=== PATIENT | female | born 1975 | race Caucasian/White ===

== ENCOUNTER 2018-06-15 20:16 | Observation (INO) ==
[2018-06-16] MEDS ORDERED: Naloxone 0.4 MG/ML INJ IVP PRN ×2 (01:22→07:14)
--- NOTE | 2018-06-16 02:19 | Internal Med History&Physical ---
<Chance Meza - Last Filed: 06/16/18 02:56> Date of Encounter: 06/16/18 Time of Encounter: 02:56 Internal Medicine - H&P: HPI Chief complaint: Right hand pain Admitted From: Home Plans for Post Hospital Care: Home History of present illness: Ms. Mccollum is a 42 year old female resented with chief complaint of right hand pain. Patient was transferred from [place]. Patient reports 2 weeks ago she was mowing her lawn when she felt acute onset of pain in her right hand on the dorsal aspect. She has a history of carrying her tendons of the right hand in 2007 with a fishing knife and reports this pain felt like her tendons were injured. 6 days ago she started having pain and swelling in her right dorsum aspect of the right hand that extended down to her elbow. Pain was described as sharp, stinging, intermittent with radiation to the right shoulder. Patient reported the pain was so bad she drank "an 18 case" beer and 2 days. She went to [facility] and states she was treated for tendinitis of the right hand and given Toradol. However she started developing redness and worsening swelling as well as worsening pain. Patient denied fevers, chills, shortness of breath, chest pain, rash. She does report 12 once 0.5 cm erythematous nodules on her bilateral upper and bilateral lower extremity that have been there since this past week. She has a history of IV drug use including heroin but reports she quit many years ago. She also reports a history of hepatitis C but denies HIV. Her hepatitis C was treated in 2013 with Arturo and she reports she was cured. At [place] patient was seen to have an abscess of her dorsal aspect of the right hand. She underwent incision and drainage and started on IV antibiotics. Dr. Matthews was consulted and patient was transferred to [facility] for further care. Past Med Surg Social Fam HX - Past Medical History Medical history: other Additional medical history: HEP C Psychiatric history: anxiety, bipolar, PTSD, schizophrenia, previous psychiatric hospitalization - Past Surgical History Additional surgical history: RIGHT HAND SX - Social History Smoking Status: Current every day smoker Smokeless Tobacco Status: No Alcohol use: heavy Drug use: marijuana, IV Drug Use - Family History Mother Hx Family Cardiac Disorders: Yes Internal Medicine - H&P: Meds No Known Home Drugs 06/15/18 [History] 3 Allergy/AdvReac Type Severity Reaction Status Date / Time acetaminophen [From Tylenol] Allergy See Verified 06/16/18 07:25 Comments NSAIDS (Non-Steroidal Allergy See Verified 06/16/18 07:25 Anti-Inflamma Comments All Systems PM: A 10-system review of systems was performed and is negative for pertinent findings except as documented above in the HPI. Review of systems: Constitutional: Denies fever, chills HEENT: Denies headache, vision changes, neck pain, sore throat, rhinorrhea Heart: Denies chest pain palpitations Lungs: Denies shortness of breath cough Abdomen: Denies abdominal pain nausea vomiting diarrhea Back: Denies back pain Kidney: Denies dysuria, hematuria Skin: redness and swelling right hand Extremities: reports welling and pain Neuro: Denies numbness and tingling - Constitutional Vitals: Temp Pulse Resp BP Pulse Ox 97.9 F 66 16 109/71 100 06/16/18 01:01 06/16/18 01:01 06/16/18 01:01 06/16/18 01:01 06/16/18 01:01 Exam: General: Pleasant without distress HEENT: Head atraumatic, normocephalic, EOMI, PERRL, neck nontender to palpation , absent lymphadenopathy, Moist Mucous Membranes, Heart: Regular rate and rhythm with no murmur Lungs: Clear to auscultation bilaterally Abdomen: Soft nontender, nondistended positive bowel sounds Skin: Right hand dorsum aspect has a 1 cm incision open packed, erythematous, swollen Extremities: Absent pedal edema, Neuro: Cranial nerves II through XII intact, UE and LE sensation equal bilaterally, UE and LEstrength 5/5, alert oriented 3, Vascular: Pedal and radial pulses 2 out of 4 - Assessment and plan (1) Hand abscess Current Visit: Yes Status: Acute Assessment and plan: 42 y/o female presents with cc of right hand pain patient has significant erythema, swelling of the dorsum of right hand At [place] emergency department patient underwent I&D Cultures have been drawn Patient was started on vancomycin and Unasyn Orthopedic surgery consultation Hand and wrist x-ray showed soft tissue swelling Patient had a mild elevated white count. Normal lactic acid. Does not meet sepsis criteria recieved tetanus vaccine Plan: Continue above antibiotics, ESR, CRP. If ESR CRP elevated and needs to do CT of the right upper extremity. (2) Cellulitis Current Visit: Yes Status: Acute Assessment and plan: as stated above. Qualifiers: Site of cellulitis: extremity Site of cellulitis of extremity: upper extremity Laterality: right Qualified Code(s): L03.113 - Cellulitis of right upper limb (3) History of intravenous drug abuse Current Visit: Yes Status: Acute Assessment and plan: Patient has a history of IV drug abuse: Heroin and also narcotic prescription medication abuse She reports she has been drug free for a few years now no evidence of splinter hemorrages, janeway lesions, conjunctival hemorrhages, osler's nodes We will obtain urine tox. (4) History of hepatitis C Current Visit: Yes Status: Acute Assessment and plan: patient reports history of hepatitis c s/p harvoni treatment in 2013 will obtain viral hep panel (5) Tobacco abuse Current Visit: Yes Status: Acute Assessment and plan: current smoker 30 pack year history patient educated on smoking cessation (6) Alcohol abuse Current Visit: Yes Status: Acute Assessment and plan: reports drinking 18 pack beer one week ago will check ethanol level patient does not show any signs of alcohol withdrawal: normotensive, HR <100, absent palmar erythema, absent tremor - Time Spent With Patient Total time spent is greater than 50% in coordination of care (as documented) at patient's floor/unit and/or counseling patient: <Brianna Meek A - Last Filed: 06/16/18 08:15> Date of Encounter: 06/16/18 Internal Medicine - H&P: HPI History of present illness: Ms. Mccollum is a 42 year old female All Systems PM: A 10-system review of systems was performed and is negative for pertinent findings except as documented above in the HPI. - Constitutional Vitals: Temp Pulse Resp BP Pulse Ox 97.7 F 66 17 135/87 97 06/16/18 05:13 06/16/18 05:13 06/16/18 05:13 06/16/18 05:13 06/16/18 05:13 Internal Med - H&P Results - Labs CBC & Chem 7: 06/16/18 04:00 06/16/18 04:00 Labs: Short CBC 06/16/18 Range/Units 04:00 WBC 8.5 (4.3-11.1) K/mcL Hgb 10.6 L (11.5-15.4) g/dL Hct 32.1 L (35.3-44.9) % Plt Count 290 (140-400) K/mcL Neutrophils # 6.1 (1.6-8.9) K/mcL BMP 06/16/18 04:00 Sodium 139 Potassium 3.6 Chloride 110 H Carbon Dioxide 23 BUN 14 Creatinine 0.75 Glucose 98 Calcium 8.7 - Assessment and plan (1) Hand abscess Current Visit: Yes Status: Acute (2) Cellulitis Current Visit: Yes Status: Acute Qualifiers: Site of cellulitis: extremity Site of cellulitis of extremity: upper extremity Laterality: right Qualified Code(s): L03.113 - Cellulitis of right upper limb (3) History of intravenous drug abuse Current Visit: Yes Status: Acute (4) History of hepatitis C Current Visit: Yes Status: Acute (5) Tobacco abuse Current Visit: Yes Status: Acute (6) Alcohol abuse Current Visit: Yes Status: Acute - Time Spent With Patient Total time spent is greater than 50% in coordination of care (as documented) at patient's floor/unit and/or counseling patient: - Attending Attestation Patient seen and examined. This discussed with the resident. Agree with assessment and plan. We will admit and treat for abscess. Continue with antibiotics. Orthopedics to see patient in the morning.
[2018-06-16] MEDS: *HR* Heparin 5,000 UNIT/ML VIAL SQ SCH ×3 (02:59→22:51)
[2018-06-16] MEDS: Ketorolac 30 MG/ML VIAL IVP PRN ×3 (06:13→18:06)
[2018-06-16] MEDS: Ampicillin/Sulbactam 3,000 MG in 0.9 % Sodium Chloride Mini Bag 100 ML IVPB SCH ×3 (06:13→18:04)
[2018-06-16 06:27] LABS: Basophils % 0.4 %; Eosinophils # 0.1 K/mcL (0.0-0.6); Eosinophils % 1.5 %; Hematocrit 32.1 % (35.3-44.9); Hemoglobin 10.6 g/dL (11.5-15.4); Immature Granulocytes % 0.2 % (0-4); Lymphocytes # 1.6 K/mcL (0.6-4.6); Lymphocytes % 18.3 %; Mean Corpuscular Hemoglobin 29.8 pg (28.0-33.3); Mean Corpuscular Volume 90.2 fL (83.0-100.0); Mean Platelet Volume 9.9 fL (9.4-12.4); Monocytes # 0.6 K/mcL (0.0-1.3); Neutrophils # 6.1 K/mcL (1.6-8.9); Platelet Count 290 K/mcL (140-400); Red Blood Count 3.56 M/mcL (3.82-4.97); Red Cell Distribution Width 12.4 % (11.5-14.5); Segmented Neutrophils % 72.6 %
--- NOTE | 2018-06-16 07:37 | Event Note ---
Date of Encounter: 06/16/18 Subjective: Ms. Mccollum is a 42 y/o female with a pmh of former IVDU and Hep C treated who presented to the ED at [facility] for right hand pain. At [facility] I&D was performed and Ortho consulted. Today, Objective:
--- NOTE | 2018-06-16 07:41 | Internal Med Progress Note ---
<Cyndi Curran - Last Filed: 06/16/18 13:31> Hospitalist Progress Note - Encounter Date of Encounter: 06/16/18 Time of Encounter: 08:45 - Subjective Interval History: Mrs. Mccollum is a 42 yo F that was admitted last night for cellulitis of the right hand~s/p I&D at [place]. The pt states that her sx began 2 weeks ago when she struck her hand against a metal flower petal on an old iron chair. She says that since then there has been increased swelling and erythema to the dorsum of her hand and she has progressively had decreased ROM as well. ~ Today the pt says that he pain has improved from yesterday after the I&D. Pt notes that she is unable to actively extend the fingers of her~right hand and has increased pain with flexion.~~She denies any fever, chills, SOB, nausea or any other sx at this time. - Exam Vitals: Temp Pulse Resp BP Pulse Ox 97.7 F 66 17 135/87 97 06/16/18 05:13 06/16/18 05:13 06/16/18 05:13 06/16/18 05:13 06/16/18 05:13 Exam: General: WD/WN, NAD, A&x3 HEENT:~No LAD, Moist Mucous Membranes, Heart: Regular rate and rhythm with no murmur Lungs: Clear to auscultation bilaterally, no wheezes, rales or rhonchi Abdomen: Soft nontender, nondistended Skin: 1.5 cm incision to the dorsum of the right hand with surrounding erythema extending to the MCPs of the 3rd-5th digits and erythema extending 7 cm proximally from the incision, there is surrounding edema on the dorsum of the right hand without fluctuance. 1+ pitting edema to the right forearm. no streaking or signs of lymphangitis. Extremities: No axillary LAD, Decreased extension of the right wrist and fingers , but the pt is able to actively flex the fingers of her right hand. Neuro: Sensation is grossly intact in the right hand and arm compared to the left. - Assessment and Plan (1) Hand abscess Current Visit: Yes Status: Acute Assessment and Plan: A t [place], Hand and wrist x-ray showed soft tissue swelling. patient underwent I&D Plan: - BC drawn at [place] (06/15/18) pending - wound cultures at [place] (06/15/18) pending - Antibiotics: vancomycin and Unasyn (day 2) - Orthopedic surgery consultation, recommend continuing antibiotics, recheck tomorrow and consider surgery - received tetanus vaccine - hand CT scan pending results. 0 (2) History of hepatitis C Current Visit: Yes Status: Acute Assessment and Plan: History of Hep C treatment. Hepatic panel pending. (3) History of intravenous drug abuse Current Visit: Yes Status: Acute Assessment and Plan: Urine drug screen pending. DVT Prophylaxis: SQ Heparin - Time Spent with Patient Total time spent is greater than 50% in coordination of care (as documented) at patient's floor/unit and/or counseling patient: Internal Medicine: Result - Labs CBC & Chem 7: 06/16/18 04:00 06/16/18 04:00 Labs: Short CBC 06/16/18 Range/Units 04:00 WBC 8.5 (4.3-11.1) K/mcL Hgb 10.6 L (11.5-15.4) g/dL Hct 32.1 L (35.3-44.9) % Plt Count 290 (140-400) K/mcL Neutrophils # 6.1 (1.6-8.9) K/mcL Consult Discharge Plan - Plan Referrals: Jazz Batista MD [Primary Care Provider] - Allen Sánchez [Family Provider] - <Megan Gerber - Last Filed: 06/16/18 14:16> Hospitalist Progress Note - Encounter Date of Encounter: 06/16/18 - Exam Vitals: Temp Pulse Resp BP Pulse Ox 97.7 F 66 17 135/87 97 06/16/18 05:13 06/16/18 05:13 06/16/18 05:13 06/16/18 05:13 06/16/18 05:13 - Assessment and Plan (1) Hand abscess Current Visit: Yes Status: Acute (2) Cellulitis Current Visit: Yes Status: Acute (3) History of intravenous drug abuse Current Visit: Yes Status: Acute (4) History of hepatitis C Current Visit: Yes Status: Acute (5) Tobacco abuse Current Visit: Yes Status: Acute (6) Alcohol abuse Current Visit: Yes Status: Acute - Time Spent with Patient Total time spent is greater than 50% in coordination of care (as documented) at patient's floor/unit and/or counseling patient: Internal Medicine: Result - Labs CBC & Chem 7: 06/16/18 04:00 06/16/18 04:00 Labs: Short CBC 06/16/18 Range/Units 04:00 WBC 8.5 (4.3-11.1) K/mcL Hgb 10.6 L (11.5-15.4) g/dL Hct 32.1 L (35.3-44.9) % Plt Count 290 (140-400) K/mcL Neutrophils # 6.1 (1.6-8.9) K/mcL BMP 06/16/18 04:00 Sodium 139 Potassium 3.6 Chloride 110 H Carbon Dioxide 23 BUN 14 Creatinine 0.75 Glucose 98 Calcium 8.7 - Impressions Impressions Hand CT 06/16/18 10:30 IMPRESSION: Diffuse dorsal soft tissue swelling and subcutaneous edema with more focal area of ulceration and underlying large complex abscess. D/ / 06/16/2018 11:53:13 Antwan Rosas MD / Jigna Garnica Interpreting Provider: Antwan Rosas MD - Attending Attestation I examined this patient and my medical decision-making was reviewed with the Resident Physician Dr. Curran. I agree with the documented findings, disposition and treatment plan as described except to the extent set forth below. Ms. Mccollum is a 42 y/o F with known PMH of anxiety, bipolar, PTSD and schizophrenia pt presented to [facility] ER with Rt hand swelling and erythema developed 2 weeks ago after a mechanical trauma. She was admitted here for further care. She had an I & D done in the ER. Pt still c/o severe Rt hand pain. Gen: A, A, O x 3 Ext: Moderate swelling in Rt hand dorsum region.. No loss of sensation a/p 1. Acute Rt hand asbscess / Cellulites Reviewed CT of Hand showed large complex abscess Ortho consulted Possible I & D in AM Cont broad spec abx - Unasyn and Vanco She does need to stay in the hospital more than 2 nights due to her complex medical problem, so will switch her to full admission today. I did review Dr. Meek's H & P including HPI, PMH, PSH, FH, SH and ROS, no changes noticed. <Megan Gerber - Last Filed: 06/16/18 14:16> (2) Cellulitis Qualifiers: Site of cellulitis: extremity Site of cellulitis of extremity: upper extremity Laterality: right Qualified Code(s): L03.113 - Cellulitis of right upper limb
[2018-06-16 07:52] LABS: BUN/Creatinine Ratio 19 (6-26); Blood Urea Nitrogen 14 mg/dL (6-20); Calcium 8.7 mg/dL (8.6-10.3); Carbon Dioxide 23 mEq/L (23-29); Chloride 110 mEq/L (98-107); Glucose 98 mg/dL (70-105); Osmolality,Calculated 288 (280-300); Potassium 3.6 mEq/L (3.5-5.1); Sodium 139 mEq/L (136-145); eGFR For Non-African Americans > 60 (> 60)
--- NOTE | 2018-06-16 10:50 | Orthopedic Consult Note ---
<Zehra Villagomez - Last Filed: 06/16/18 15:58> Date of Encounter: 06/16/18 Time of Encounter: 08:45 Assessment and Plan (1) Hand abscess Current Visit: Yes Status: Acute I&D was performed in the ER last night. Packing is still in place on exam. Will leave in until this afternoon. I will return this afternoon to remove the packing and should start soap/water cleanses 3x daily after that and cover with dry gauze dressings. May change more often if become saturated. Begin ROM of hand and wrist as tolerated. Patient instructed on focusing on passive ROM of fingers and wrist. Elevate RUE now inside stockinette from IV pole. Xrays show soft tissue swelling only. Hardware noted to small finger from a previous surgery 5+ years ago. CT of wrist is pending. Labs: WBC 8.5, ESR: 87, CRP: 279. vitals stable. afebrile. Continue with IV abx per hospitalist team. Currently on vancomycin and unasyn. Discussed case with Dr. Hoang who recommends monitoring for now with the abx. If no improvement overnight then will plan for washout in OR tomorrow. Update: CT resulted showing large abscess to dorsal hand. Dr. Hoang plans to now take patient to the OR today. She did eat lunch around 12pm today but no intake since that time. Will make NPO now. Continue to keep hand elevated. She did remove the packing herself earlier this afternoon. (2) Cellulitis Current Visit: Yes Status: Acute Qualifiers: Site of cellulitis: extremity Site of cellulitis of extremity: upper extremity Laterality: right Qualified Code(s): L03.113 - Cellulitis of right upper limb History of Present Illness Chief complaint: right hand swelling HPI: Ms. Mccollum is a 42 year old female who presented to [place] ER yesterday for right hand pain and swelling and was subsequently transferred to [facility] for admission and further evaluation. Patient states her right hand and arm started to hurt 2 weeks ago after she mowed for 2 days straight. She states 1-2 days later she hit her hand on a metal "leaf" design on a chair she was sitting in which she states created a hole and bled some. She went to [place] ER later that week and was told she had tendonitis and given a brace. Over the past few days she states the redness, swelling and pain have significantly increased which led her to go to ER last night. Pain is constant and it worst in the wrist but does radiate into fingers and up to elbow. In the [place] ER, they performed I&D and collected wound cultures which are currently pending. She does have a history of IVDA including using heroin but she states she has not used in over a year and never injected into her hands previously. Denies any numbness or tingling. Denies any fevers, chest pain, SOB at this time. Denies any other symptoms at this time. Of note she did have previous surgery on right ring and small fingers for apparent tendon repairs in 2013, denies any other injuries to this hand. She is right hand dominant. Past Med Surg Social Fam HX - Past Medical History Medical history: other Additional medical history: HEP C Psychiatric history: anxiety, bipolar, PTSD, schizophrenia, previous psychiatric hospitalization - Past Surgical History Additional surgical history: RIGHT HAND SX - Social History Smoking Status: Current every day smoker Smokeless Tobacco Status: No Alcohol use: heavy Drug use: marijuana, IV Drug Use - Family History Mother Hx Family Cardiac Disorders: Yes Medications and Allergies No Known Home Drugs 06/15/18 [History] 3 Allergy/AdvReac Type Severity Reaction Status Date / Time acetaminophen [From Tylenol] Allergy See Verified 06/16/18 07:25 Comments NSAIDS (Non-Steroidal Allergy See Verified 06/16/18 07:25 Anti-Inflamma Comments All Systems Reviewed: The remainder of the systems were reviewed and are negative - Constitutional Constitutional: as per HPI - Cardiovascular Cardiovascular: as per HPI - Respiratory Respiratory: as per HPI - Musculoskeletal Musculoskeletal: as per HPI Physical Exam - Constitutional Vitals: Temp Pulse Resp BP Pulse Ox 97.7 F 66 17 135/87 97 06/16/18 05:13 06/16/18 05:13 06/16/18 05:13 06/16/18 05:13 06/16/18 05:13 - Wrist & Hand right Location of pain: dorsal wrist (There is moderate swelling and erythema noted to the dorsal wrist. no streaking to forearm or fingers. There is a roughly 2cm incision to dorsal wrist with packing in place and active purulent drainage around this site. No current bleeding. Palpation along palmar side mildly tender but no erythema or wounds ntoed to this side. Wrist is held in neutral, very limited ROM of wrist and digits, passive extension of digits alleviated pain in wrist. brisk cap refill. grossly NV intact ) Results - Labs Result Diagrams: 06/16/18 04:00 06/16/18 04:00 Labs: Abnormal lab results RBC 3.56 M/mcL (3.82-4.97) L 06/16/18 04:00 Hgb 10.6 g/dL (11.5-15.4) L 06/16/18 04:00 Hct 32.1 % (35.3-44.9) L 06/16/18 04:00 ESR 87 mm/hr (0-15) H 06/16/18 04:00 Chloride 110 mEq/L (98-107) H 06/16/18 04:00 POC Glucose 122 mg/dL (70-99) H 06/16/18 05:18 C-Reactive Protein 279 mg/L (Less than 10) H 06/16/18 04:00 Ethyl Alcohol 12 mg/dL (Less than 10) H 06/16/18 04:00 H & H 06/16/18 Range/Units 04:00 Hgb 10.6 L (11.5-15.4) g/dL Hct 32.1 L (35.3-44.9) % All other labs normal. - Diagnostic results Wrist/Hand x-ray: report reviewed, image reviewed Wrist/Hand CT: pending Consult Discharge Plan - Plan Referrals: Jazz Batista MD [Primary Care Provider] - Allen Sánchez [Family Provider] - - Attending Attestation Case and plan of care was discussed with supervising physician who was available for all aspects of care. <Cody Hoang - Last Filed: 06/16/18 17:55> Date of Encounter: 06/16/18 Assessment and Plan (1) Hand abscess Current Visit: Yes Status: Acute I do agree with the physician assistants assessment. The patient does have a large dorsal hand abscess. It is localized to the right wrist area. My recommendation is for incision, drainage, irrigation, and debridement under general anesthesia. The risks discussed included but were not limited to stiffness, bleeding, infection, blood clots, damage to neurovascular structures , tendons, ligaments, and bone. Also discussed was the risk of continued symptoms and possible need for further procedures. I did discuss the anesthesia risks including stroke, heart attack, and . I did discuss the reasonable, foreseeable postoperative course with the patient. She did wish to proceed and consent was confirmed. (2) Cellulitis Current Visit: Yes Status: Acute Qualifiers: Site of cellulitis: extremity Site of cellulitis of extremity: upper extremity Laterality: right Qualified Code(s): L03.113 - Cellulitis of right upper limb History of Present Illness HPI: Ms. Mccollum is a 42 year old female All Systems Reviewed: The remainder of the systems were reviewed and are negative Physical Exam - Constitutional Vitals: Temp Pulse Resp BP Pulse Ox 98.3 F 76 16 133/94 95 06/16/18 15:22 06/16/18 15:22 06/16/18 15:22 06/16/18 15:22 06/16/18 15:22 Results - Labs Result Diagrams: 06/16/18 04:00 06/16/18 04:00 Labs: Abnormal lab results RBC 3.56 M/mcL (3.82-4.97) L 06/16/18 04:00 Hgb 10.6 g/dL (11.5-15.4) L 06/16/18 04:00 Hct 32.1 % (35.3-44.9) L 06/16/18 04:00 ESR 87 mm/hr (0-15) H 06/16/18 04:00 Chloride 110 mEq/L (98-107) H 06/16/18 04:00 POC Glucose 122 mg/dL (70-99) H 06/16/18 05:18 C-Reactive Protein 279 mg/L (Less than 10) H 06/16/18 04:00 Ur Amphetamines Screen Positive ng/mL (Hlncgq=4508) H 06/16/18 13:45 U Marijuana (THC) Screen Positive ng/mL (Cutoff = 50) H 06/16/18 13:45 Ethyl Alcohol 12 mg/dL (Less than 10) H 06/16/18 04:00 H & H 06/16/18 Range/Units 04:00 Hgb 10.6 L (11.5-15.4) g/dL Hct 32.1 L (35.3-44.9) % All other labs normal.
[2018-06-16] MEDS ORDERED: Isovue-370 500 ML INFUS..BTL IV ONE (11:11)
[2018-06-16 14:55] LABS: Amphetamine Screen,Urine Positive ng/mL (Cutoff=1000); Barbiturate Screen,Urine Negative ng/mL (Cutoff=200); Benzodiazepines Screen,Urine Negative ng/mL (Cutoff=200); Cannabinoid Screen,Urine Positive ng/mL (Cutoff = 50); Cocaine Screen,Urine Negative ng/mL (Cutoff= 300); Opiate Screen,Urine Negative ng/mL (Cutoff=300); Phencyclidine Screen,Urine Negative ng/mL (Cutoff=25)
[2018-06-16 16:44] LABS: HIV-1&2 Antibody & p24 Ag Nonreactive (Nonreactive); Hepatitis B Surface Antigen Nonreactive (Nonreactive)
[2018-06-16] MEDS ORDERED: Lidocaine/EPI 1:100k 1% 20 ML VIAL ONE (19:35)
[2018-06-16] MEDS ORDERED: Bupivacaine/EPI 1:200k 0.5%PF 10 ML VIAL ONE (19:37)
--- NOTE | 2018-06-16 19:39 | Anesthesia Evaluation PreOp ---
Date of Encounter: 06/16/18 Time of Encounter: 19:36 - Past History Planned Operation: I&D Right Wrist Cardiac History: Denies any Significant Hx Pulmonary History: Denies Any Significant HX [employer] History: Other (anxiety, bipolar, PTSD, schizophrenia, previous psychiatric hospitalization) Other Medical History: Hepatic (Hep C) Anesthesia History: No Prior Anesthetic Complications, Past Anesthesia (tubal, reconstruction fingers r. hand) : No Test: Negative (06/16/2018) Alcohol Use: heavy Drug use: marijuana, IV Drug Use Medications and Allergies No Known Home Drugs 06/15/18 [History] 3 Allergy/AdvReac Type Severity Reaction Status Date / Time acetaminophen [From Tylenol] Allergy See Verified 06/16/18 07:25 Comments NSAIDS (Non-Steroidal Allergy See Verified 06/16/18 07:25 Anti-Inflamma Comments - Meds/Allergy Pre-op Review Medications Reviewed: Yes Allergies Reviewed: Yes Beta Blockers on Current Med List: No Anesthesia Results - Labs 06/16/18 04:00 06/16/18 04:00 Anesthesia Exam Vital Signs/O2 Sat, Most Current Temp Pulse Resp BP Pulse Ox 98.3 F 76 16 133/94 95 06/16/18 15:22 06/16/18 15:22 06/16/18 15:22 06/16/18 15:22 06/16/18 15:22 NPO (# of Hours): 8 hrs, ate cheeseburger at noon Pain Scale: 0 Pain Scale Used: Numeric (1 - 10) - HEENT Pupil (Motor): Pupils equal, EOMI Mallampati: II Teeth: Normal Oral Opening: Greater than 3 - [employer] LOC: Oriented [employer] Motor: Normal RUE, Normal LUE, Normal RLE, Normal LLE, Normal Face [employer] Sensory: Normal: RUE, LUE, RLE, LLE, Face - Cardiac Rhythm: Regular Murmur: None JVD: No Carotid Bruit: No - Pulmonary Breath Sounds: bilateral Clear Respiratory Effort: Symmetrical Anesthesia Assess/Plan ASA Score: 3 Modified Meredith Scale for Level of Consciousness: Cooperative, oriented, and tranquil Anesthetic Plan: General Autologous Blood: Yes Monitoring Plan: Standard Monitors Recovery Plan: PACU
[2018-06-16] MEDS ORDERED: *HR* FentaNYL (PF) 100 MCG/2 ML VIAL ONE (19:44)
[2018-06-16] MEDS ORDERED: *HR* Propofol 200 MG/20 ML VIAL IVP ONE (19:44)
[2018-06-16] MEDS ORDERED: Albuterol 2.5 MG/3 ML NEBULIZER IH ONE (20:39)
[2018-06-16] MEDS ORDERED: *HR* Promethazine 25 MG/ML VIAL IVP PRN (20:39)
[2018-06-16] MEDS ORDERED: Ondansetron 4 MG/2 ML VIAL IVP ONE (20:39)
[2018-06-16] MEDS ORDERED: *HR* OxyCODONE Immed Rel 5 MG TABLET PO PRN (20:39)
[2018-06-16] MEDS: *HR* HYDROmorphone (PF) 1 MG/ML SYRINGE IVP PRN ×2 (21:10→21:22)
--- NOTE | 2018-06-16 21:39 | Anesthesia Evaluation Post Op ---
Date of Encounter: 06/16/18 Time of Encounter: 21:39 - Vital Signs Vital Signs: Vital Signs/O2 Sat, Most Current Temp Pulse Resp BP Pulse Ox 98.1 F 56 16 134/87 100 06/16/18 21:21 06/16/18 21:31 06/16/18 21:31 06/16/18 21:31 06/16/18 21:31 - Lungs Lungs: Clear Ascult./Percussion - Airway Airway: Non-obstructed - Cardiovascular Regular Rate - Mental Status Mental Status: Alert & Oriented, Answers Appropriately - Pain Pain Scale: 0 Pain Scale used: Numeric (1 - 10) - Nausea Vomiting Nausea Vomiting: Not Present - Hydration Hydration: NPO, Has not voided - Discharge PostOp Status: Transfer Patient to floor
--- NOTE | 2018-06-16 22:20 | Orthopedic Operative Note ---
Date of procedure: 06/16/18 Procedure: OPERATIVE REPORT SURGEON: Cody Hoang MD PREOPERATIVE DIAGNOSIS: Right dorsal hand/wrist abscess POSTOPERATIVE DIAGNOSIS: Same PROCEDURE: Incision, drainage, irrigation, and debridement of the right dorsal hand/wrist ANESTHESIA: Gen. anesthesia SPECIMENS: Swabs for culture PREOPERATIVE NOTE AND INDICATIONS: This patient is a 42-year-old female with a right dorsal hand/wrist abscess. A bedside I&D was performed in the ER but due to persistent drainage a CT scan was performed and demonstrated further abscess. The recommendation was for the above procedure to drain the abscess. The surgical plan was discussed with the patient. The risks, benefits, alternatives, and potential complications of this procedure were discussed with the patient including injury to veins, arteries, nerves, tendons, ligaments, and bone. Also discussed were the risks of infection, bleeding, pain, blood clots, the possible need for a blood transfusion, the possible need for further procedures, heart attack, stroke, and . Additional risks include the need for further debridement. All of this was explained in simple terms, and the patient verbalized understanding and wished to proceed. Consent was given to proceed with surgery. PROCEDURE: The patient was seen in the preoperative holding area where the identify and the consent were confirmed. The right wrist was marked. Final questions were answered. The patient was brought back to the operating room and placed supine on the operating room table. A huddle was performed with the patient and all vital surgical team members confirming patient identity, the correct procedure, and the correct operative site. Gen. anesthesia was administered. The operative extremity was prepped and draped in the usual sterile fashion. A surgical time out was performed immediately preceding the incision with all personnel in the operating room to confirm patient identity, the correct operative site and extremity, correct radiographic studies, availability of appropriate surgical equipment, and agreement on the planned procedure. The tourniquet was inflated without exsanguination. A longitudinal incision was made over the abscess incorporating the old I&D site. Dissection proceeded carefully through the subcutaneous tissue down to the abscess cavity which involved the subcutaneous tissue. Copious purulent material was decompressed in swabbed for culture. The extensor tendons were uninvolved. The wound was copiously irrigated and the incision was closed loosely over a N[place]oma drain. A sterile dressing was applied and the tourniquet was deflated. The instrument, sponge, and needle counts were correct after wound closure. POST OPERATIVE PLAN: IV antibiotics per the primary team and local wound care. Was there an gynecological assistant present: No Estimated blood loss (cc): 1
[2018-06-17] MEDS: Ketorolac 30 MG/ML VIAL IVP PRN ×4 (01:04→23:13)
[2018-06-17] MEDS: Ampicillin/Sulbactam 3,000 MG in 0.9 % Sodium Chloride Mini Bag 100 ML IVPB SCH ×4 (01:05→17:09)
[2018-06-17] MEDS: *HR* Heparin 5,000 UNIT/ML VIAL SQ SCH ×3 (05:57→21:46)
[2018-06-17 06:29] LABS: Hematocrit 30.9 % (35.3-44.9); Hemoglobin 10.3 g/dL (11.5-15.4); Mean Corpuscular HGB Conc 33.3 g/dL (31.6-35.5); Mean Corpuscular Volume 90.1 fL (83.0-100.0); Mean Platelet Volume 10.3 fL (9.4-12.4); Platelet Count 319 K/mcL (140-400); Red Blood Count 3.43 M/mcL (3.82-4.97); Red Cell Distribution Width 12.6 % (11.5-14.5)
--- NOTE | 2018-06-17 07:09 | Orthopedics Progress Note ---
Date of Encounter: 06/17/18 Time of Encounter: 07:07 - Assessment and Plan (1) Hand abscess Current Visit: Yes Status: Acute (2) Cellulitis Current Visit: Yes Status: Acute Qualifiers: Site of cellulitis: extremity Site of cellulitis of extremity: upper extremity Laterality: right Qualified Code(s): L03.113 - Cellulitis of right upper limb Subjective Interval history: S: Significant improvement in the right hand and dorsal wrist pain No new complaints O: Afebrile on the vital signs are stable The dressing is clean, dry, and intact Neurovascularly intact distally to the right hand A: Post incision, drainage, irrigation, and debridement of the right dorsal wrist and hand abscess P: Continue IV antibiotics under the direction of the hospitalist service We will change dressing and possibly remove drain later today depending on the amount of drainage Elevate Digital motion exercises Possible discharge tomorrow on oral antibiotics depending on clinical course Objective Vital signs: Vital Signs Temp Pulse Resp BP Pulse Ox 06/17/18 06:48 98 F 57 16 97/59 97 06/17/18 05:07 98 06/17/18 04:51 97.7 F 63 14 115/75 98 06/16/18 22:56 97.8 F 64 14 114/68 95 06/16/18 22:34 97.2 F L 68 14 108/52 98 06/16/18 21:57 98.2 F 62 14 115/66 98 06/16/18 21:41 98.1 F 58 16 135/77 100 06/16/18 21:31 56 16 134/87 100 06/16/18 21:21 98.1 F 60 16 142/83 100 06/16/18 21:11 62 16 131/85 93 06/16/18 21:01 68 16 141/84 93 06/16/18 20:51 97.8 F 95 16 143/76 99 06/16/18 15:22 98.3 F 76 16 133/94 95 Intake and Output 06/16/18 06/16/18 06/17/18 15:59 23:59 07:59 Intake Total 350 / 350 100 / 100 220 / 220 Output Total 2 / 2 0 / 0 Balance 350 / 350 98 / 98 220 / 220 Intake: IV Fluids 350 / 350 100 / 100 100 / 100 Unasyn 3,000 MG In 0.9 % Sodium 100 / 100 100 / 100 100 / 100 Chloride (Mini-Bag +) 100 ML @ 200 mls/hr IVPB Q6HR [facility] Rx#: [id number] Vancocin 1,250 MG In 0.9 % 250 / 250 Sodium Chloride 250 ML @ 167 mls/hr IVPB Q12H [facility] Rx#: [id number] Oral 0 / 0 120 / 120 Output: Urine 0 / 0 0 / 0 Estimated Blood Loss 2 / 2 Other: Meal Dinner NPO Weight 91 kg Patient Weight 06/17/18 23:59 Weight 91 kg - Labs CBC & BMP: 06/17/18 05:56 06/16/18 04:00 Labs: Abnormal lab results RBC 3.43 M/mcL (3.82-4.97) L 06/17/18 05:56 Hgb 10.3 g/dL (11.5-15.4) L 06/17/18 05:56 Hct 30.9 % (35.3-44.9) L 06/17/18 05:56 ESR 104 mm/hr (0-15) H 06/17/18 05:56 Chloride 110 mEq/L (98-107) H 06/16/18 04:00 POC Glucose 122 mg/dL (70-99) H 06/16/18 05:18 C-Reactive Protein 279 mg/L (Less than 10) H 06/16/18 04:00 Ur Amphetamines Screen Positive ng/mL (Nlthkr=1231) H 06/16/18 13:45 U Marijuana (THC) Screen Positive ng/mL (Cutoff = 50) H 06/16/18 13:45 Ethyl Alcohol 12 mg/dL (Less than 10) H 06/16/18 04:00 Consult Discharge Plan - Plan Referrals: Jazz Batista MD [Primary Care Provider] -
[2018-06-17 07:26] LABS: Alanine Aminotransferase 14 Units/L (7-52); Albumin 3.6 g/dL (3.5-5.7); Albumin/Globulin Ratio 1.1 (1.1-2.2); Alkaline Phosphatase 94 Units/L (34-104); Aspartate Amino Transferase 15 Units/L (13-39); BUN/Creatinine Ratio 16 (6-26); Bilirubin,Total 0.3 mg/dL (0.3-1.0); Blood Urea Nitrogen 14 mg/dL (6-20); Calcium 8.9 mg/dL (8.6-10.3); Carbon Dioxide 22 mEq/L (23-29); Chloride 108 mEq/L (98-107); Globulin 3.3 g/dL (2.4-3.5); Glucose 142 mg/dL (70-105); Osmolality,Calculated 287 (280-300); Potassium 4.6 mEq/L (3.5-5.1); Sodium 137 mEq/L (136-145); Total Protein 6.9 g/dL (6.4-8.9); eGFR For Non-African Americans > 60 (> 60)
[2018-06-17] MEDS: Nicotine 21 MG PATCH.TD24 TD SCH (07:45)
[2018-06-17] MEDS ORDERED: Nicotine 21 MG PATCH.TD24 TD SCH (09:00)
--- NOTE | 2018-06-17 17:52 | Internal Med Progress Note ---
Hospitalist Progress Note - Encounter Date of Encounter: 06/17/18 Time of Encounter: 12:00 - Subjective Interval History: Ms. Mccollum is a 42 y/o F with known PMH of anxiety, bipolar, PTSD and schizophrenia pt presented to [facility] ER with Rt hand swelling and erythema developed 2 weeks ago after a mechanical trauma. She was admitted here for further care. She had an I & D done in the ER. CT of Hand showed large complex abscess. She did go for I & D y/d by Ortho. Her Rt hand swelling and erythema improved. - Exam Vitals: Temp Pulse Resp BP Pulse Ox 98 F 61 17 116/71 97 06/17/18 15:39 06/17/18 15:39 06/17/18 15:39 06/17/18 15:39 06/17/18 15:39 Exam: Gen: Alert, awake, Oriented to time,place and person Chest: Diminished breath sounds B/L, No wheezing, No crackles, No rales Heart: S1S2+ RRR No murmurs Abd: Soft, NT, BS +, No organomegaly Ext: Improving erythema and swelling in Rt hand noticed. she still has draiange port.. wound packing + Neuro : Benign findings Skin: No rash. - Assessment and Plan (1) Hand abscess Current Visit: Yes Status: Acute Assessment and Plan: s/p I & D cont broad spec abx Unasyn + Vanc Ortho on board waiting on wound cx wound care as per ortho recommendations (2) Cellulitis Current Visit: Yes Status: Acute Assessment and Plan: as stated above. (3) History of intravenous drug abuse Current Visit: Yes Status: Acute Assessment and Plan: Patient has a history of IV drug abuse: Heroin and also narcotic prescription medication abuse She reports she has been drug free for a few years now No signs of withdraw symptoms (4) History of hepatitis C Current Visit: Yes Status: Acute Assessment and Plan: patient reports history of hepatitis c s/p harvoni treatment in 2013 (5) Tobacco abuse Current Visit: Yes Status: Acute Assessment and Plan: current smoker 30 pack year history patient educated on smoking cessation (6) Alcohol abuse Current Visit: Yes Status: Acute Assessment and Plan: reports drinking 18 pack beer one week ago patient does not show any signs of alcohol withdrawal: normotensive, HR <100, absent palmar erythema, absent tremor - Time Spent with Patient Total time spent is greater than 50% in coordination of care (as documented) at patient's floor/unit and/or counseling patient: Internal Medicine: Result - Labs CBC & Chem 7: 06/17/18 05:56 06/17/18 05:56 Labs: Short CBC 06/17/18 Range/Units 05:56 WBC 7.3 (4.3-11.1) K/mcL Hgb 10.3 L (11.5-15.4) g/dL Hct 30.9 L (35.3-44.9) % Plt Count 319 (140-400) K/mcL BMP 06/17/18 05:56 Sodium 137 Potassium 4.6 Chloride 108 H Carbon Dioxide 22 L BUN 14 Creatinine 0.87 Glucose 142 H Calcium 8.9 Liver Function 06/17/18 Range/Units 05:56 Total Bilirubin 0.3 (0.3-1.0) mg/dL AST 15 (13-39) Units/L ALT 14 (7-52) Units/L Alkaline Phosphatase 94 (34-104) Units/L Albumin 3.6 (3.5-5.7) g/dL Consult Discharge Plan - Plan Referrals: Jazz Batista MD [Primary Care Provider] - (2) Cellulitis Qualifiers: Site of cellulitis: extremity Site of cellulitis of extremity: upper extremity Laterality: right Qualified Code(s): L03.113 - Cellulitis of right upper limb
[2018-06-17 18:54] LABS: Hepatitis A Antibody IgM Nonreactive (Nonreactive); Hepatitis B Core IgM Nonreactive (Nonreactive)
[2018-06-17 19:03] LABS: Hepatitis C Virus Antibody Reactive (Nonreactive)
[2018-06-18] MEDS: Ketorolac 30 MG/ML VIAL IVP PRN ×4 (00:01→21:35)
[2018-06-18] MEDS: Ampicillin/Sulbactam 3,000 MG in 0.9 % Sodium Chloride Mini Bag 100 ML IVPB SCH ×4 (02:25→18:27)
[2018-06-18] MEDS: *HR* Heparin 5,000 UNIT/ML VIAL SQ SCH ×3 (06:58→21:36)
[2018-06-18 08:16] LABS: Basophils % 0.6 %; Eosinophils # 0.1 K/mcL (0.0-0.6); Eosinophils % 1.2 %; Hematocrit 28.2 % (35.3-44.9); Lymphocytes # 2.2 K/mcL (0.6-4.6); Lymphocytes % 45.3 %; Mean Corpuscular HGB Conc 32.6 g/dL (31.6-35.5); Mean Corpuscular Hemoglobin 29.3 pg (28.0-33.3); Mean Corpuscular Volume 89.8 fL (83.0-100.0); Mean Platelet Volume 9.8 fL (9.4-12.4); Monocytes # 0.3 K/mcL (0.0-1.3); Monocytes % 6.9 %; Neutrophils # 2.2 K/mcL (1.6-8.9); Platelet Count 358 K/mcL (140-400); Red Blood Count 3.14 M/mcL (3.82-4.97); Red Cell Distribution Width 12.7 % (11.5-14.5)
[2018-06-18 08:18] LABS: Hemoglobin 9.2 g/dL (11.5-15.4)
[2018-06-18] MEDS: Nicotine 21 MG PATCH.TD24 TD SCH (09:13)
--- NOTE | 2018-06-18 09:13 | Orthopedics Progress Note ---
Date of Encounter: 06/18/18 Time of Encounter: 09:11 - Assessment and Plan (1) Hand abscess Current Visit: Yes Status: Acute (2) Cellulitis Current Visit: Yes Status: Acute Qualifiers: Site of cellulitis: extremity Site of cellulitis of extremity: upper extremity Laterality: right Qualified Code(s): L03.113 - Cellulitis of right upper limb Subjective Interval history: S: Expected pain to the right dorsal wrist area and I&D site. O: Afebrile and vital signs are stable Significant improvement in both swelling and erythema Minimal drainage from the wound The Yolanda drain is pulled I can gently range the wrist and the digits passively without significant difficulty She does have difficulties and actively motioning the digits due to pain The fingertips are all grossly sensate and well-perfused, and the radial artery pulse is 2+. Cultures are pending A: Post I&D of the right dorsal wrist/hand P: Continue antibiotics per the primary team, and anticipate switching to orals Continue local wound care with twice daily dressing changes and packing changes I will consult OT to assist in motion exercises of the digits Elevation of the right upper extremity No plans for further debridement Orthopedically stable Follow-up in 1 week in anticipation for stitch removal and repeat wound evaluation Objective Vital signs: Vital Signs Temp Pulse Resp BP Pulse Ox 06/18/18 08:43 97.8 F 65 14 125/80 97 06/18/18 00:25 97.8 F 92 14 118/73 99 06/17/18 20:50 97.4 F L 74 16 143/78 95 06/17/18 15:39 98 F 61 17 116/71 97 06/17/18 11:39 97.9 F 59 16 112/73 97 Intake and Output 06/17/18 06/18/18 06/18/18 23:59 07:59 15:59 Intake Total 340 / 340 470 / 470 0 / 0 Output Total 300 / 300 350 / 350 Balance 40 / 40 120 / 120 0 / 0 Intake: IV Fluids 100 / 100 350 / 350 Unasyn 3,000 MG In 0.9 % Sodium 100 / 100 100 / 100 Chloride (Mini-Bag +) 100 ML @ 200 mls/hr IVPB Q6HR [facility] Rx#: [id number] Vancocin 1,250 MG In 0.9 % 250 / 250 Sodium Chloride 250 ML @ 167 mls/hr IVPB Q12H [facility] Rx#: [id number] Oral 240 / 240 120 / 120 0 / 0 Output: Urine 300 / 300 350 / 350 Other: Meal Dinner Percent of Meal Consumed 5% # Voids 1 Weight 89.7 kg Patient Weight 06/18/18 23:59 Weight 89.7 kg - Labs CBC & BMP: 06/18/18 07:49 06/17/18 05:56 Labs: Abnormal lab results RBC 3.14 M/mcL (3.82-4.97) L 06/18/18 07:49 Hgb 9.2 g/dL (11.5-15.4) L 06/18/18 07:49 Hct 28.2 % (35.3-44.9) L 06/18/18 07:49 ESR 104 mm/hr (0-15) H 06/17/18 05:56 Chloride 108 mEq/L (98-107) H 06/17/18 05:56 Carbon Dioxide 22 mEq/L (23-29) L 06/17/18 05:56 Glucose 142 mg/dL (70-105) H 06/17/18 05:56 POC Glucose 122 mg/dL (70-99) H 06/16/18 05:18 C-Reactive Protein 220 mg/L (Less than 10) H 06/17/18 05:56 Vancomycin Trough 15 mcg/mL (5-10) H 06/17/18 22:06 Ur Amphetamines Screen Positive ng/mL (Fgrvwu=0500) H 06/16/18 13:45 U Marijuana (THC) Screen Positive ng/mL (Cutoff = 50) H 06/16/18 13:45 Ethyl Alcohol 12 mg/dL (Less than 10) H 06/16/18 04:00 Hepatitis C Ab Screen Reactive (Nonreactive) H 06/16/18 04:00 Consult Discharge Plan - Plan Referrals: Jazz Batista MD [Primary Care Provider] -
--- NOTE | 2018-06-18 13:38 | Internal Med Progress Note ---
Hospitalist Progress Note - Encounter Date of Encounter: 06/18/18 Time of Encounter: 11:30 - Subjective Interval History: Ms. Mccollum is a 42 y/o F with known PMH of anxiety, bipolar, PTSD and schizophrenia pt presented to [facility] ER with Rt hand swelling and erythema developed 2 weeks ago after a mechanical trauma. She was admitted here for further care. She had an I & D done in the ER. CT of Hand showed large complex abscess. She did go for I & D y/d by Ortho. Her Rt hand swelling and erythema improved. - Exam Vitals: Temp Pulse Resp BP Pulse Ox 98.0 F 88 16 130/83 95 06/18/18 11:30 06/18/18 11:30 06/18/18 11:30 06/18/18 11:30 06/18/18 11:30 Exam: Gen: Alert, awake, Oriented to time,place and person Chest: Diminished breath sounds B/L, No wheezing, No crackles, No rales Heart: S1S2+ RRR No murmurs Abd: Soft, NT, BS +, No organomegaly Ext: Improving erythema and swelling in Rt hand noticed. wound packing + Neuro : Benign findings Skin: No rash. - Assessment and Plan (1) Hand abscess Current Visit: Yes Status: Acute Assessment and Plan: s/p I & D cont broad spec abx Unasyn + Vanc Ortho on board wound cx growing G+ve cocci wound care as per ortho recommendations Possible d/c home in AM Need educate the pt about self dressing change (2) Cellulitis Current Visit: Yes Status: Acute Assessment and Plan: as stated above. (3) History of intravenous drug abuse Current Visit: Yes Status: Acute Assessment and Plan: Patient has a history of IV drug abuse: Heroin and also narcotic prescription medication abuse She reports she has been drug free for a few years now No signs of withdraw symptoms (4) History of hepatitis C Current Visit: Yes Status: Acute Assessment and Plan: patient reports history of hepatitis c s/p harvoni treatment in 2013 (5) Tobacco abuse Current Visit: Yes Status: Acute Assessment and Plan: current smoker 30 pack year history patient educated on smoking cessation (6) Alcohol abuse Current Visit: Yes Status: Acute Assessment and Plan: reports drinking 18 pack beer one week ago patient do not show any signs of alcohol withdrawal - Time Spent with Patient Total time spent is greater than 50% in coordination of care (as documented) at patient's floor/unit and/or counseling patient: Internal Medicine: Result - Labs CBC & Chem 7: 06/18/18 07:49 06/17/18 05:56 Labs: Short CBC 06/18/18 Range/Units 07:49 WBC 4.9 (4.3-11.1) K/mcL Hgb 9.2 L (11.5-15.4) g/dL Hct 28.2 L (35.3-44.9) % Plt Count 358 (140-400) K/mcL Neutrophils # 2.2 (1.6-8.9) K/mcL - VTE Documentation of Mechanical Device: Intermittent pneumatic compression device Consult Discharge Plan - Plan Referrals: Jazz Batista MD [Primary Care Provider] - (2) Cellulitis Qualifiers: Site of cellulitis: extremity Site of cellulitis of extremity: upper extremity Laterality: right Qualified Code(s): L03.113 - Cellulitis of right upper limb
[2018-06-19] MEDS: Ampicillin/Sulbactam 3,000 MG in 0.9 % Sodium Chloride Mini Bag 100 ML IVPB SCH ×2 (01:25→06:15)
[2018-06-19] MEDS: Ketorolac 30 MG/ML VIAL IVP PRN (03:38)
[2018-06-19] MEDS: *HR* Heparin 5,000 UNIT/ML VIAL SQ SCH (06:15)
[2018-06-19 07:27] VITALS: BP 121/77
[2018-06-19] MEDS: Nicotine 21 MG PATCH.TD24 TD SCH (08:47)
[2018-06-19] MEDS ORDERED: *HR* OxyCODONE Immed Rel 5 MG TABLET PO PRN (08:51)
--- NOTE | 2018-06-19 10:14 | Orthopedics Progress Note ---
Date of Encounter: 06/19/18 Time of Encounter: 10:13 - Assessment and Plan (1) Hand abscess Current Visit: Yes Status: Acute (2) Cellulitis Current Visit: Yes Status: Acute Qualifiers: Site of cellulitis: extremity Site of cellulitis of extremity: upper extremity Laterality: right Qualified Code(s): L03.113 - Cellulitis of right upper limb Subjective Interval history: S: Continues to improve O: Afebrile and vital signs are stable Significant improvement in both swelling and erythema Minimal drainage from the wound I can gently range the wrist and the digits passively without significant difficulty She does have difficulties and actively motioning the digits due to pain The fingertips are all grossly sensate and well-perfused, and the radial artery pulse is 2+. Cultures noted A: Post I&D of the right dorsal wrist/hand P: Elevation of the right upper extremity Antibiotics per primary team. No plans for further debridement Orthopedically stable Follow-up in 1 week in anticipation for stitch removal and repeat wound evaluation Objective Vital signs: Vital Signs Temp Pulse Resp BP Pulse Ox 06/19/18 07:23 97.9 F 57 16 121/77 97 06/19/18 03:58 97.9 F 55 16 124/85 97 06/18/18 19:34 98.1 F 83 16 129/82 97 06/18/18 16:17 98.5 F 67 16 121/74 96 06/18/18 11:30 98.0 F 88 16 130/83 95 Intake and Output 06/18/18 06/19/18 06/19/18 23:59 07:59 15:59 Intake Total 100 / 100 450 / 450 Output Total 0 / 0 Balance 100 / 100 450 / 450 Intake: IV Fluids 100 / 100 450 / 450 Unasyn 3,000 MG In 0.9 % Sodium 100 / 100 200 / 200 Chloride (Mini-Bag +) 100 ML @ 200 mls/hr IVPB Q6HR [facility] Rx#: [id number] Vancocin 1,250 MG In 0.9 % 250 / 250 Sodium Chloride 250 ML @ 167 mls/hr IVPB Q12H [facility] Rx#: [id number] Oral 0 / 0 Output: Urine 0 / 0 Other: # Voids 1 3 Weight 89.5 kg Patient Weight 06/19/18 23:59 Weight 89.5 kg - Labs CBC & BMP: 06/18/18 07:49 06/17/18 05:56 Labs: Abnormal lab results RBC 3.14 M/mcL (3.82-4.97) L 06/18/18 07:49 Hgb 9.2 g/dL (11.5-15.4) L 06/18/18 07:49 Hct 28.2 % (35.3-44.9) L 06/18/18 07:49 ESR 104 mm/hr (0-15) H 06/17/18 05:56 Chloride 108 mEq/L (98-107) H 06/17/18 05:56 Carbon Dioxide 22 mEq/L (23-29) L 06/17/18 05:56 Glucose 142 mg/dL (70-105) H 06/17/18 05:56 POC Glucose 122 mg/dL (70-99) H 06/16/18 05:18 C-Reactive Protein 220 mg/L (Less than 10) H 06/17/18 05:56 Vancomycin Trough 15 mcg/mL (5-10) H 06/17/18 22:06 Ur Amphetamines Screen Positive ng/mL (Bkmzhh=7422) H 06/16/18 13:45 U Marijuana (THC) Screen Positive ng/mL (Cutoff = 50) H 06/16/18 13:45 Ethyl Alcohol 12 mg/dL (Less than 10) H 06/16/18 04:00 Hepatitis C Ab Screen Reactive (Nonreactive) H 06/16/18 04:00 - VTE Documentation of Mechanical Device: Intermittent pneumatic compression device Consult Discharge Plan - Plan Referrals: Jazz Batista MD [Primary Care Provider] -
--- NOTE | 2018-06-19 10:25 | Discharge Summary ---
- NOTES TO OUTPATIENT PROVIDER Notes to Outpatient Provider: f/u with Ortho in one week. Please continue taking abx Augmentin for 10 more days. Please do daily dressing change as per Ortho recomendations Orders not resulted at time of discharge: Pending orders 06/16/18 20:34 Culture,Anaerobic [RM] Routine Date of Encounter: 06/19/18 Time of Encounter: 10:00 - Discharge Diagnosis (1) Hand abscess Priority: Primary Status: Acute (2) Cellulitis Priority: Primary Status: Acute Qualifiers: Site of cellulitis: extremity Site of cellulitis of extremity: upper extremity Laterality: right Qualified Code(s): L03.113 - Cellulitis of right upper limb (3) History of intravenous drug abuse Priority: Secondary Status: Acute (4) History of hepatitis C Priority: Secondary Status: Acute (5) Tobacco abuse Priority: Secondary Status: Acute (6) Alcohol abuse Priority: Secondary Status: Acute Hospital course: Ms. Mccollum is a 42 y/o F with known PMH of anxiety, bipolar, PTSD and schizophrenia pt presented to [facility] ER with Rt hand swelling and erythema developed 2 weeks ago after a mechanical trauma. She was admitted here for further care. She had an I & D done in the ER. CT of Hand showed large complex abscess. She did go for another I & D y/d by Ortho on 06/16/18. She was placed on broad spec abx Unasyn and Vancomycin. Her Rt hand swelling and erythema improved. Her wound cx grew Strep Anginosus , which is penicillin sensitive. So switched to Augmentin for total 14 days course of abx. Also educated the pt about dressing changes. - Time Spent with Patient Total time spent providing and/or coordinating discharge services: - Discharge Medications Prescriptions: OxyCODONE Immed Rel [Roxicodone 5 MG] 5 mg PO Q6HR PRN 5 Days #20 tablet PRN Reason: Pain Amoxicillin/Clavulanate [Augmentin] 875 mg PO BIDWM #20 tablet Nicotine Patch [Nicoderm] 21 mg TD DAILY #30 patch.td24 Home Medications: Amoxicillin/Clavulanate [Augmentin] 875 mg PO BIDWM #20 tablet 06/19/18 [Rx] Nicotine Patch [Nicoderm] 21 mg TD DAILY #30 patch.td24 06/19/18 [Rx] OxyCODONE Immed Rel [Roxicodone 5 MG] 5 mg PO Q6HR PRN 5 Days #20 tablet [Rx] Allergies/Adverse Reactions: 3 Allergy/AdvReac Type Severity Reaction Status Date / Time acetaminophen [From Tylenol] Allergy See Verified 06/16/18 07:25 Comments NSAIDS (Non-Steroidal Allergy See Verified 06/16/18 07:25 Anti-Inflamma Comments Date of admission: 06/16/18 00:26 Primary care physician: Jazz Batista MD Consults: 06/16/18 02:14 Consult to Orthopedic Surgery [CONS] Routine Consulting Provider: Orthoped[facility] Reason for Consult: right hand abscess Call Completed: Yes 06/18/18 09:13 Consult to Occupational Therapy [CONS] Routine Comment: Evaluate, develop and implement POC Reason for Consult: Work on digital ROM Does patient have active BEDREST order?: No Is patient medically & hemodynamically stable?: Yes Patient assessed for mobility or mobilized this visit?: Yes - Constitutional Vitals: Temp Pulse Resp BP Pulse Ox 97.9 F 57 16 121/77 97 06/19/18 07:23 06/19/18 07:23 06/19/18 07:23 06/19/18 07:23 06/19/18 07:23 Exam: Gen: Alert, awake, Oriented to time,place and person Chest: Diminished breath sounds B/L, No wheezing, No crackles, No rales Heart: S1S2+ RRR No murmurs Abd: Soft, NT, BS +, No organomegaly Ext: Improving erythema and swelling in Rt hand noticed. wound packing + Neuro : Benign findings Skin: No rash. - Patient Status Disposition: Home, Self-Care Condition: Good Overall status at discharge: patient is back to baseline - Discharge Instructions Follow Up With: Jazz Batista MD [Primary Care Provider] - Cody Hoang MD [Partnered Physician] - - Diet and Activity Activity: increase activity as tolerated Diet: low salt diet - VTE Documentation of Mechanical Device: Intermittent pneumatic compression device
[2018-06-19] MEDS ORDERED: Aminoglycoside Consult 1 EACH MC ONE (11:59)
== END 2018-06-19 12:00 | disposition home or self-care (01) ==
LOC: 3ANU
PROVIDERS: ADMIT Internal Medicine; ATTEND Internal Medicine

== ENCOUNTER 2021-04-29 05:20 | Observation (INO) ==
[2021-04-29] MEDS ORDERED: Naloxone 0.4 MG/ML INJ IVP PRN (09:44)
[2021-04-29] MEDS ORDERED: Melatonin 3 MG TABLET PO PRN (09:44)
[2021-04-29] MEDS ORDERED: Ondansetron 4 MG/2 ML VIAL IVP PRN (09:44)
[2021-04-29 10:27] LABS: Basophils # 0.1 K/mcL (0.0-0.2); Basophils % 0.7 %; Eosinophils # 0.3 K/mcL (0.0-0.6); Eosinophils % 4.6 %; Hemoglobin 11.7 g/dL (11.5-15.4); Immature Granulocytes % 0.4 % (0-4); Lymphocytes # 2.8 K/mcL (0.6-4.6); Lymphocytes % 40.4 %; Mean Corpuscular HGB Conc 32.5 g/dL (31.6-35.5); Mean Corpuscular Hemoglobin 28.9 pg (28.0-33.3); Mean Corpuscular Volume 88.9 fL (83.0-100.0); Mean Platelet Volume 10.2 fL (9.4-12.4); Monocytes # 0.5 K/mcL (0.0-1.3); Neutrophils # 3.3 K/mcL (1.6-8.9); Platelet Count 257 K/mcL (140-400); Red Blood Count 4.05 M/mcL (3.82-4.97); Red Cell Distribution Width 13.2 % (11.5-14.5); Segmented Neutrophils % 46.9 %
[2021-04-29 10:33] LABS: INR 0.9; Prothrombin Time 10.9 Seconds (9.4-12.1)
[2021-04-29 10:43] LABS: BUN/Creatinine Ratio 16 (6-26); Blood Urea Nitrogen 14 mg/dL (6-20); Calcium 8.5 mg/dL (8.6-10.3); Carbon Dioxide 23 mEq/L (23-29); Chloride 109 mEq/L (98-107); Glucose 104 mg/dL (70-105); Osmolality,Calculated 289 (280-300); Potassium 3.9 mEq/L (3.5-5.1); Sodium 139 mEq/L (136-145); eGFR For African Americans > 60 (> 60); eGFR For Non-African Americans > 60 (> 60)
[2021-04-29 10:44] LABS: Magnesium 2.2 mg/dL (1.6-2.6)
[2021-04-29 10:50] LABS: Troponin I 0.12 ng/mL (< 0.04)
[2021-04-29 10:56] LABS: Thyroid Stimulating Hormone 2.572 mcIU/mL (0.340-5.600)
[2021-04-29] MEDS ORDERED: *HR* Heparin 5,000 UNIT/ML VIAL IVP ONE (11:16)
[2021-04-29] MEDS ORDERED: *HR* Heparin 5,000 UNIT/ML VIAL IVP PRN ×2 (11:16)
[2021-04-29] MEDS ORDERED: Perflutren Lipid Microsphere 1.3 ML in 0.9 % Sodium Chloride 8.7 ML IVP PRN (11:17)
[2021-04-29] MEDS ORDERED: Isovue-370 500 ML BOTTLE IVP ONE (11:32)
[2021-04-29] MEDS ORDERED: Amiodarone Premix 360 MG/200 ML BAG IVC ONE (11:35)
[2021-04-29 12:15] LABS: Alanine Aminotransferase 24 Units/L (7-52); Aspartate Amino Transferase 19 Units/L (13-39)
[2021-04-29] MEDS: Metoprolol XL (24 HR) Succ 25 MG TAB.ER.24H PO SCH (12:25)
[2021-04-29] MEDS: Heparin 25,000UNIT/250ML 1/2NS 25,000 UNIT/250 ML IV.SOLN IVC SCH (12:26)
[2021-04-29] MEDS: Nicotine 14 MG PATCH.TD24 TD SCH (17:34)
[2021-04-29] MEDS: Amiodarone Premix 360 MG/200 ML BAG IVC SCH (17:36)
[2021-04-29] MEDS ORDERED: *HR* LORazepam 2 MG/ML VIAL IVP PRN ×3 (18:27)
[2021-04-30 00:30] LABS: Basophils # 0.1 K/mcL (0.0-0.2); Basophils % 0.8 %; Eosinophils # 0.4 K/mcL (0.0-0.6); Eosinophils % 5.8 %; Hemoglobin 12.2 g/dL (11.5-15.4); Immature Granulocytes % 0.4 % (0-4); Lymphocytes # 3.3 K/mcL (0.6-4.6); Lymphocytes % 46.7 %; Mean Corpuscular Hemoglobin 29.1 pg (28.0-33.3); Mean Corpuscular Volume 88.3 fL (83.0-100.0); Mean Platelet Volume 10.1 fL (9.4-12.4); Monocytes # 0.5 K/mcL (0.0-1.3); Monocytes % 6.5 %; Neutrophils # 2.8 K/mcL (1.6-8.9); Platelet Count 253 K/mcL (140-400); Red Blood Count 4.19 M/mcL (3.82-4.97); Red Cell Distribution Width 13.3 % (11.5-14.5); Segmented Neutrophils % 39.8 %; White Blood Count 7.1 K/mcL (4.3-11.1)
[2021-04-30 00:50] LABS: BUN/Creatinine Ratio 14 (6-26); Blood Urea Nitrogen 13 mg/dL (6-20); Calcium 8.7 mg/dL (8.6-10.3); Carbon Dioxide 22 mEq/L (23-29); Chloride 109 mEq/L (98-107); Glucose 118 mg/dL (70-105); Osmolality,Calculated 287 (280-300); Sodium 138 mEq/L (136-145); eGFR For African Americans > 60 (> 60); eGFR For Non-African Americans > 60 (> 60)
[2021-04-30 00:55] LABS: Troponin I 0.06 ng/mL (< 0.04)
[2021-04-30] MEDS: Amiodarone Premix 360 MG/200 ML BAG IVC SCH ×2 (05:00→16:19)
[2021-04-30] MEDS: Metoprolol XL (24 HR) Succ 25 MG TAB.ER.24H PO SCH (08:59)
[2021-04-30] MEDS ORDERED: Folic Acid 1 MG TABLET PO SCH (09:00)
[2021-04-30] MEDS ORDERED: Thiamine (B-1) 100 MG TABLET PO SCH (09:00)
[2021-04-30] MEDS ORDERED: Aspirin Enteric Coated 81 MG Tablet PO SCH (09:00)
[2021-04-30] MEDS: Heparin 25,000UNIT/250ML 1/2NS 25,000 UNIT/250 ML IV.SOLN IVC SCH (10:48)
[2021-04-30] MEDS ORDERED: ISOVUE-370 200 ML INFUS..BTL ONE (11:01)
[2021-04-30] MEDS ORDERED: Heparin 1,000 UNITS/500 mL 500 ML ONE (11:01)
[2021-04-30] MEDS ORDERED: Nitroglycerin 1,000 MCG/5 ML VIAL IV ONE (11:01)
[2021-04-30] MEDS ORDERED: *HR* Heparin 10,000 UNIT/10 ML VIAL ONE (11:01)
[2021-04-30] MEDS ORDERED: 0.9 % Sodium Chloride 2,000 ML ONE (11:01)
[2021-04-30] MEDS ORDERED: *HR* Midazolam HCl 2 MG/2 ML VIAL ONE (11:16)
[2021-04-30] MEDS ORDERED: *HR* FentaNYL (PF) 100 MCG/2 ML VIAL ONE (11:16)
[2021-04-30 16:04] VITALS: BP 121/67; PULSE 55; TEMP 97.6; O2SAT 96
[2021-04-30] MEDS: Nicotine 14 MG PATCH.TD24 TD SCH (16:19)
== END 2021-04-30 19:10 | disposition short-term general hospital (02) ==
LOC: 2NNU → SUATTDRO 09:14
PROVIDERS: ADMIT Pharmacist; ATTEND Internal Medicine